=== PATIENT | male | born 1985 | race Hispanic/Latino ===

== ENCOUNTER 2020-03-12 07:52 | Emergency (ER) | payer OTHER, SELFPAY ==
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
[2020-03-12 08:06] VITALS: BP 122/59; PULSE 72; RESP 16; TEMP 36.8; O2SAT 98; BMI 25.8
[2020-03-12] MEDS: KETOROLAC 60 MG/2 ML VIAL 30 MG IM (08:41)
[2020-03-12 08:42] VITALS: BP 112/67; PULSE 65; RESP 12; O2SAT 98
[2020-03-12 09:03] VITALS: BP 112/67; PULSE 58; RESP 12; O2SAT 100
== END 2020-03-12 09:06 | disposition home or self-care (01) ==
PROVIDERS: Emergency Provider Emergency Medicine
DX: M54.5 Low back pain (principal)
CPT/HCPCS: 96372; 99283; J1885

== ENCOUNTER 2021-04-20 14:02 | Emergency (ER) | payer OTHER, SELFPAY ==
[2021-04-20 14:24] VITALS: BP 120/72; PULSE 58; RESP 16; TEMP 36.9; O2SAT 97; BMI 25.8
--- NOTE | 2021-04-20 14:26 | DI.RAD.S_ITS ---
PROCEDURE: XR FINGER RT MIN 2V INDICATIONS: injured during jiu jitsu TECHNIQUE: AP hand, 2 views of the right thumb finger(s) acquired. COMPARISON: None. FINDINGS: Bones: No acute fractures or dislocations. No suspicious bony lesions. Soft tissues: No suspicious soft tissue calcifications. Overlying soft tissue swelling predominantly over the metacarpophalangeal joint. IMPRESSION: Right thumb soft tissue swelling predominantly over the metacarpophalangeal joint without underlying acute fracture or dislocation. If there is persistent clinical concern for occult fracture given adequate mechanism of injury, consider repeat imaging in 10-14 days. Additionally, if there is clinical concern for internal soft tissue derangement, further evaluation with MRI can be considered. Dictated by: Khris Francisco M.D. on 04/20/2021 at 15:03 Approved by: Khris Francisco M.D. on 04/20/2021 at 15:05
--- NOTE | 2021-04-20 14:27 | DI.RAD.S_ITS ---
PROCEDURE: XR FINGER LT MIN 2V INDICATIONS: injured during jiu jitsu TECHNIQUE: AP hand, 2 views of the left 3rd finger(s) acquired. COMPARISON: None. FINDINGS: Bones: No definite fractures or dislocations. No suspicious bony lesions. Soft tissues: No suspicious soft tissue calcifications. IMPRESSION: No definite fracture. No dislocation seen. If there is persistent clinical concern for occult fracture given adequate mechanism of injury, consider repeat imaging in 10-14 days. Dictated by: Khris Francisco M.D. on 04/20/2021 at 15:01 Approved by: Khris Francisco M.D. on 04/20/2021 at 15:02
--- NOTE | 2021-04-20 15:36 | PC.NURSE ---
injured finger while training rachel. [place] a pop, taped finger after injury. INcrease pain, swelling and some bruising noted to deras aspect of middle finger.
--- NOTE | 2021-04-20 17:01 | ED.UPPEXIN ---
HPI - Extremity Injury (Upper) General Chief Complaint: Extremity Injury, Upper Stated Complaint: Possible Broken Middle Finger, Left Hand Time Seen by Provider: 04/20/21 16:59 History of Present Illness HPI narrative: Patient is a 35-year-old male who presents with left middle finger pain after practicing [employer]. He hurt both his right thumb and left middle finger. Left middle finger is swollen and he feels like he heard a pop. He is able to flex and extend it. It is not red he denies any fever. He says it has actually come and injury in his practice but wanted him to come and get checked out. Related Data Home Medications Medication Instructions Recorded Confirmed ibuprofen 400 mg tablet 400 mg PO PRN PRN 03/12/20 03/12/20 Previous Rx's Medication Instructions Recorded cyclobenzaprine 10 mg tablet 10 mg PO TID PRN #14 tab 03/12/20 hydrocodone 5 mg-acetaminophen 325 1 tab PO Q6H PRN #10 tab 03/12/20 mg tablet ([place]) Allergies Allergy/AdvReac Type Severity Reaction Status Date / Time No Known Drug Allergies Allergy Verified 03/12/20 08:10 Review of Systems Review of Systems Narrative: GENERAL: Denies chills,fever HEENT: Denies throat pain RESPIRATORY: Denies dyspnea, cough, wheezing CARDIOVASCULAR: Denies chest pain, palpitations GASTROINTESTINAL: Denies nausea, vomiting MUSCULOSKELETAL: See HPI SKIN: No rash, no laceration, no pruritus NEUROLOGIC: Denies weakness, dizziness, headache, numbness 8 point review of systems is negative except for those stated above and HPI Patient History Medical History (Updated 04/20/21 @ 17:07 by Taniya Squires DO) Healthy adult Social History Smoking Status: Never smoker Smoking Status: Never smoker alcohol intake frequency: 0-2 drinks per day Substance Use Type: does not use Exam Initial Vital Signs Initial Vital Signs: Vital Signs Temperature 98.4 F 04/20/21 14:24 Pulse Rate 58 L 04/20/21 14:24 Respiratory Rate 16 04/20/21 14:24 Blood Pressure 120/72 04/20/21 14:24 Pulse Oximetry 97 04/20/21 14:24 GENERAL: Well-appearing, well-nourished and in no acute distress. CARDIOVASCULAR: peripheral pulses in tact, cap refill <2 sec RESPIRATORY: No respiratory distress, speaks in full sentences without difficulty EXTREMITIES: Normal range of motion, no clubbing or edema. Neurovascularly intact Left middle finger PIP is swollen but able to flex extend. Right some mild pain. But has full range of motion no pain over scaphoid. NEUROLOGICAL: Cranial nerves II through XII grossly intact. Normal gait and speech. SKIN: Warm, dry, no petechiae, no rashes or lesions. Course Orders Ordered: ED Orders 04/20/21 14:26 XR finger RT min 2V Stat 04/20/21 14:27 XR finger LT min 2V Stat Vital Signs Vital signs: Vital Signs - 8 hr 04/20/21 14:24 Temperature 98.4 F Pulse Rate 58 L Respiratory Rate 16 Blood Pressure 120/72 Pulse Oximetry 97 MDM - Extremity Injury (Upper) Imaging Data Extremity x-ray #1: Radiologist's Impression: PROCEDURE: XR FINGER RT MIN 2V INDICATIONS: injured during jiu jitsu TECHNIQUE: AP hand, 2 views of the right thumb finger(s) acquired. COMPARISON: None. FINDINGS: Bones: No acute fractures or dislocations. No suspicious bony lesions. Soft tissues: No suspicious soft tissue calcifications. Overlying soft tissue swelling predominantly over the metacarpophalangeal joint. IMPRESSION: Right thumb soft tissue swelling predominantly over the metacarpophalangeal joint without underlying acute fracture or dislocation. If there is persistent clinical concern for occult fracture given adequate mechanism of injury, consider repeat imaging in 10-14 days. Additionally, if there is clinical concern for internal soft tissue derangement, further evaluation with MRI can be considered. Dictated by: Khris Francisco M.D. on 04/20/2021 at 15:03 Approved by: Khris Francisco M.D. on 04/20/2021 at 15:05 Extremity x-ray #2: Radiologist's Impression: PROCEDURE: XR FINGER LT MIN 2V INDICATIONS: injured during jiu jitsu TECHNIQUE: AP hand, 2 views of the left 3rd finger(s) acquired. COMPARISON: None. FINDINGS: Bones: No definite fractures or dislocations. No suspicious bony lesions. Soft tissues: No suspicious soft tissue calcifications. IMPRESSION: No definite fracture. No dislocation seen. If there is persistent clinical concern for occult fracture given adequate mechanism of injury, consider repeat imaging in 10-14 days. Dictated by: Khris Francisco M.D. on 04/20/2021 at 15:01 MDM Narrative Medical decision making narrative: X-rays are negative no fractures seen. His patient feels very comfortable with his injuries is he has things at home to help treat them including some special tape. Discharge Plan Departure Patient Disposition: Home Clinical Impression: Sprain of interphalangeal joint of left middle finger Qualifiers: Encounter type: initial encounter Qualified Code(s): S63.633A - Sprain of interphalangeal joint of left middle finger, initial encounter Instructions: DI for Finger Sprain Activity Restrictions/Additional Instructions: *You have been diagnosed with left middle finger sprain *What to do: At this time no broken bones. Obvious sprain and strain of your left middle finger. Splint as needed. This can take a couple of weeks to heal. *Continue to take medications as directed Motrin 800 mg every 8 hours if needed for [id number] pain Tylenol 1000 mg every 6 hours if needed for [id number] pain *Follow up with your primary care provider in 2-3 days *Return to ER if you should have increased pain, swelling, reddness or any new, worsening or concerning symptoms Prescriptions: No Action ibuprofen 400 mg tablet 400 mg PO PRN PRN (Reason: Pain (Scale Score 1-3)) RF: 0 cyclobenzaprine 10 mg tablet 10 mg PO TID PRN (Reason: muscle spasm) Qty: 14 RF: 0 hydrocodone-acetaminophen [[place]] 5-325 mg tablet 1 tab PO Q6H PRN (Reason: pain) Qty: 10 RF: 0 Referrals: Ed Jj [Primary Care Provider] -
== END 2021-04-20 17:10 | disposition home or self-care (01) ==
PROVIDERS: Emergency Provider Emergency Medicine
DX: S63.633A Sprain of interphalangeal joint of left middle finger, initial encounter (principal); X58.XXXA Exposure to other specified factors, initial encounter
CPT/HCPCS: 73140; 99283

== ENCOUNTER → 2022-07-20 12:42 | Outpatient (CLI) | payer OTHER, SELFPAY ==
--- NOTE | 2022-07-20 | DI.RAD.S_ITS ---
PROCEDURE: FL SHOULDER INJECTION MR/CT RT INDICATIONS: Right shoulder pain COMPARISON: None. TECHNIQUE: The indications, alternatives, benefits, risks, and complications of the procedure were explained to the patient. Written informed consent was obtained and placed in the chart. The shoulder was examined fluoroscopically and a site for needle placement chosen for entry into the glenohumeral joint from an anterior approach. The skin was prepped and draped in a sterile fashion, and 1% lidocaine infiltrated from skin down to joint capsule. A spinal needle was inserted into the glenohumeral joint, and a small amount of iodinated contrast media injected to confirm intra-articular placement of the needle tip. This was followed by approximately 12 mL dilute solution of a gadolinium containing MR contrast agent. The needle was removed and a dressing was applied. The patient was given postprocedural instructions and sent to the MR suite for MR imaging. FINDINGS: A single fluoroscopic spot image demonstrates intra-articular location of injected iodinated contrast. IMPRESSION: Successful fluoroscopically guided administration of dilute Gadolinium solution into the shoulder joint for MR arthrogram. Dictated by: Gregorio Martinez M.D. on 07/21/2022 at 15:34 Approved by: Gregorio Martinez M.D. on 07/21/2022 at 15:36
--- NOTE | 2022-07-20 | DI.MRI.S_ITS ---
PROCEDURE: MR SHOULDER RT W CON INDICATIONS: Right shoulder pain TECHNIQUE: After the administration of 12 mL of dilute intra-articular Gadolinium contrast, oblique coronal T1 and T2 spin echo with fat saturation, oblique sagittal T1 spin echo with and without fat saturation, oblique sagittal T2 fast spin echo with fat saturation, axial T1 spin echo with fat saturation through the shoulder. COMPARISON: [facility], , [place] SHOULDER INJECTION MR/CT RT, 07/20/2022, 12:59. FINDINGS: Image quality: Excellent. Rotator cuff: There is moderate to severe supraspinatus and infraspinatus tendinosis. A small focus of low-grade intrasubstance tearing is seen at the distal supraspinatus tendon just proximal to the insertion. Additional small focal low-grade bursal surface tearing is seen at the anterior supraspinatus footprint. The teres minor and subscapularis tendons are intact. There is no significant rotator cuff muscle atrophy. Bones and bursae: No acute trabecular bone injury or fracture. No focal glenohumeral cartilage defect. Mild degenerative changes are seen at the acromioclavicular joint. There is downsloping of the lateral acromion, which mildly impinges upon the dorsal supraspinatus. A small amount of noncommunicating fluid is seen in the subacromial/subdeltoid bursa. No intra-articular filling defect is seen within the glenohumeral joint space. Capsule and soft tissues: There is partial nondisplaced tearing of the superior labrum extending into the posterosuperior and anterosuperior labrum. The inferior labrum is intact. The proximal biceps long head tendon is intact. The glenohumeral ligaments appear to be intact. IMPRESSION: 1. Small foci of low grade intrasubstance and bursal sided tearing within the distal supraspinatus tendon superimposed on moderate to severe supraspinatus and infraspinatus tendinosis. 2. Nondisplaced partial tear of the superior labrum extending into the posterosuperior and anterosuperior labrum. 3. Mild acromioclavicular joint osteoarthrosis. Downsloping of the lateral acromion is seen that mildly impinges upon the dorsal supraspinatus tendon. 4. Small noncommunicating subacromial/subdeltoid bursal effusion. Approved by: Ashkan Tanner M.D. on 07/20/2022 at 19:55
== END ==
PROVIDERS: Referring Provider Student in an Organized Health Care Education/Training Program; Visit Provider Student in an Organized Health Care Education/Training Program
DX: M75.111 Incomplete rotator cuff tear or rupture of right shoulder, not specified as traumatic (principal); S43.491A Other sprain of right shoulder joint, initial encounter; M19.011 Primary osteoarthritis, right shoulder; M25.411 Effusion, right shoulder; M25.511 Pain in right shoulder
CPT/HCPCS: 23350; 73222; 77002

== ENCOUNTER → 2023-11-04 11:56 | Outpatient (CLI) | payer OTHER, SELFPAY ==
--- NOTE | 2023-11-04 | DI.RAD.S_ITS ---
PROCEDURE: XR CERVICAL SPINE 2V OR 3V INDICATIONS: Chronic ischemic heart disease, unspecified TECHNIQUE: 3 view(s) of the cervical spine were acquired. COMPARISON: None. FINDINGS: Bones: No fractures or dislocations to the C7 level. The lateral masses of C1 appear intact on the odontoid view. Minimal degenerative changes in the cervical spine. No suspicious bony lesions. Soft tissues: No prevertebral soft tissue swelling. IMPRESSION: Minimal degenerative changes in the cervical spine. Dictated by: Pasha Aleman M.D. on 11/04/2023 at 17:52 Approved by: Pasha Aleman M.D. on 11/04/2023 at 17:53
--- NOTE | 2023-11-04 | DI.RAD.S_ITS ---
PROCEDURE: XR SACRUM COCCYX MIN 2V INDICATIONS: Chronic ischemic heart disease, unspecified TECHNIQUE: 3 views of the sacrum and coccyx acquired. COMPARISON: None. FINDINGS: Bones: No fractures or dislocations. SI joints appear partially ankylosed. There is mild sclerosis at the SI joints. No suspicious bony lesions. Soft tissues: Visualized bowel gas pattern is normal. No suspicious soft tissue densities. IMPRESSION: SI joints appear partially ankylosed. Mild sclerosis at the SI joints. Dictated by: Pasha Aleman M.D. on 11/04/2023 at 15:42 Approved by: Pasha Aleman M.D. on 11/04/2023 at 15:44
--- NOTE | 2023-11-04 | DI.RAD.S_ITS ---
PROCEDURE: XR LUMBAR SPINE 2-3V INDICATIONS: Chronic ischemic heart disease, unspecified TECHNIQUE: 3 views of the lumbar spine were acquired. COMPARISON: [facility], CR, XR SACRUM COCCYX MIN 2V, 11/04/2023, 12:44. FINDINGS: Bones: 5 [id number]-guvdyhj vertebrae are present. Small vertebral body osteophytes. There is normal bony alignment. No vertebral body compression fractures. No suspicious bony lesions. Soft tissues: Overlying bowel gas pattern is normal. No suspicious soft tissue calcifications. Cholecystectomy clips. IMPRESSION: Mild degenerative changes in the lumbar spine. Dictated by: Pasha Aleman M.D. on 11/04/2023 at 15:44 Approved by: Pasha Aleman M.D. on 11/04/2023 at 15:46
--- NOTE | 2023-11-04 | DI.RAD.S_ITS ---
PROCEDURE: XR CHEST 2V INDICATIONS: Chronic ischemic heart disease, unspecified TECHNIQUE: 2 views of the chest were acquired. COMPARISON: None. FINDINGS: Surgical changes and devices: None. Lungs and pleura: Lungs are clear. No pleural effusions or pneumothorax. Mediastinum: Mediastinal contours are normal. Heart size is normal. Bones and chest wall: No suspicious bony abnormalities. Soft tissues appear unremarkable. IMPRESSION: No acute cardiopulmonary abnormality. Dictated by: Pasha Aleman M.D. on 11/04/2023 at 13:47 Approved by: Pasha Aleman M.D. on 11/04/2023 at 13:47
--- NOTE | 2023-11-04 13:22 | DI.ECHO.S_ITS ---
[place] [facility]---------+ [facility] +---------+ : : [address] : : : : [id number] : : : : Phone: [phone] Echocardiogram Report + + :Name: RANJIT GARCIA Study Date: 11/04/2023 Height: 67 in : :[facility] ReadingLocation: Weight: 180 lb : : Gender: Male BSA: 1.9 m2 : :: 1985 Age: 38 yrs BP: 134/80 mmHg: :Reason For Study: CHRONIC ISCHEMIC HEART DISEASE, PALPITATIONS : :Ordering Physician: AZAR, : :JUSTINA Performed By: Ivanna Monk : :Referring: JUSTINA ASKEW : + + Interpretation Summary The ejection fraction is estimated to be 60-65%. Diastolic parameters suggest probable normal left ventricular diastolic function and normal filling pressures. The right ventricle is normal in size and function. No significant valvular abnormality. The IVC is of normal diameter and collapses greater than 50% with a sniff. This suggests a low right atrial pressure of 3 mm Hg. Procedure: A two-dimensional transthoracic echocardiogram with color flow and Doppler was performed. The study quality was technically adequate. There is no prior echocardiogram noted for this patient. The patient was in sinus rhythm with heart rates between 61-70 bpm during the exam. Left Ventricle: The left ventricle is normal in size and wall thickness. The ejection fraction is estimated to be 60-65%. Left ventricular wall motion is normal. Diastolic parameters suggest probable normal left ventricular diastolic function and normal filling pressures. Right Ventricle: The right ventricle is normal in size and function. Atria: The left atrial size is normal. Right atrial size is normal. There is no Doppler evidence for an interatrial shunt. Mitral Valve: The mitral valve is normal in structure and function. There is trace mitral regurgitation. Aortic Valve: The aortic valve is trileaflet. The aortic valve opens well. There is no aortic valve stenosis. There is trace aortic regurgitation. Tricuspid Valve: The tricuspid valve is normal in structure and function. There is trace tricuspid regurgitation. Pulmonic Valve: The pulmonic valve leaflets are thin and pliable; valve motion is normal. There is no pulmonic valvular regurgitation. Great Vessels: The aortic root is normal size. The dimensions of the ascending aorta are normal. The IVC is of normal diameter and collapses greater than 50% with a sniff. This suggests a low right atrial pressure of 3 mm Hg. Pericardium/ Pleura There is no pericardial effusion. There is no pleural effusion. MMode/2D Measurements & Calculations LVIDd: 4.8 cm LVOT diam: 2.1 cm LVIDs: 3.0 cm Ao root diam: 3.1 cm FS: 37.0 % asc Aorta Diam: 3.0 cm EPSS: 0.46 cm Ao Arch Diam (Prox Trans): 2.3 cm IVSd: 0.87 cm LVPWd: 0.84 cm LV smith. diameter/BSA (cm/m^2): 2.5 LV sys. diameter/BSA (cm/m^2): 1.6 LA A2 area: 19.7 cm2 RA long axis: 4.2 cm LA A4 area: 13.9 cm2 RA area: 13.6 cm2 LA length (vol): 4.4 cm RA vol: 36.9 ml LA vol: 52.7 ml RA : 19.1 ml/m2 LA vol index: 27.2 ml/m2 IVC diam: 1.6 cm RVD1 (basal): 4.0 cm RVD2 (mid): 3.7 cm TAPSE: 2.7 cm Doppler Measurements & Calculations Ao V2 max: 145.8 cm/sec LVOT Max Dragan: 108.3 cm/sec Ao V2 mean: 99.9 cm/sec LV V1 max P.7 mmHg Ao max P.5 mmHg LV V1 VTI: 21.6 cm Ao mean P.4 mmHg KATHYA(I,D): 2.9 cm2 Ao V2 VTI: 26.6 cm KATHYA(V,D): 2.7 cm2 sev ratio: 0.81 KATHYA indexed to BSA (cm^2/m^2): 1.5 MV E max dragan: 57.4 cm/sec PA V2 max: 101.7 cm/sec MV A max dragan: 43.8 cm/sec PA V2 mean: 81.5 cm/sec MV E/A: 1.3 PA mean P.7 mmHg Med Peak E' Dragan: 10.9 cm/sec PA pr(Accel): 17.3 mmHg E/E' med: 5.3 Lat Peak E' Dragan: 12.5 cm/sec E/E' lat: 4.6 E/e' average: 4.9 MV dec time: 0.[address] [facility] 77.8 ml Reading Physician:PM
== END ==
PROVIDERS: Referring Provider Chiropractor; Visit Provider Chiropractor
DX: I25.9 Chronic ischemic heart disease, unspecified (principal); M47.816 Spondylosis without myelopathy or radiculopathy, lumbar region; M48.8X8 Other specified spondylopathies, sacral and sacrococcygeal region
CPT/HCPCS: 71046; 72040; 72100; 72220; 93005; 93306